=== PATIENT | female | born 1990 | race Caucasian/White ===

== ENCOUNTER 2016-07-21 20:11 | Observation (INO) | payer BC ==
[~2016-07-21] VITALS: Ht 160 cm; Wt 74.9 kg
[~2016-07-21 20:11] MED LIST: BACTRIM,SEPT1 TABLET PO; KEFLEX500 MG PO; MOTRIN800 MG PO; NOHOMEMEDS; PERCOCET 5/31 TABLET PO; PHENERGAN25 MG PR; PROMETHAZINE HC25 M1 PO; TESSALON PERLE100 MG PO; ZANTAC300 MG PO; ZOFRAN ODT4 MG PO; ZOFRAN4 MG PO
[2016-07-21 21:18] LABS: HEMATOCRIT 39.4 % (36.0-46.0); MCH 29.6 PG (29.0-34.0); MEAN PLAT.VOLUME 10.7 uM^3 (9.5-12.4); PLATELET COUNT 278 K/uL (156-360); RBC DIS.WIDTH-CV 12.4 % (11.8-14.6); RBC DIS.WIDTH-SD 38.5 % (39-53); RED BLOOD COUNT 4.53 M/uL (3.80-5.20); WHITE BLOOD COUNT 6.7 K/uL (4.1-10.2)
[2016-07-21 21:29] LABS: CHLORIDE 105 mEq/L (99-109); POTASSIUM 3.8 mEq/L (3.7-5.4); SODIUM 140 mEq/L (136-147)
[2016-07-21 21:31] LABS: GLUCOSE 97 mg/dL (70-99)
[2016-07-21 21:32] LABS: ANION GAP 7 MEQ/L (2-14)
[2016-07-21 21:33] LABS: TOTAL BILIRUBIN 2.6 mg/dL (0.0-1.0)
[2016-07-21 21:34] LABS: ALKALINE PHOSPHATASE 91 IU/L (3-129)
[2016-07-21 21:35] LABS: GFR ESTIMATE (CALCULATED) > 59 mL/min/
[2016-07-21 21:36] LABS: UREA NITROGEN (BUN) 9 mg/dL (9-23)
[2016-07-21 21:38] LABS: LIPASE 30 U/L (1.0-51.0)
[2016-07-21 21:44] LABS: QUANTITATIVE HCG < 4.0 MIU/ML
[2016-07-22] MEDS ORDERED: MELATONIN5 M4 PO (01:03)
[2016-07-22] MEDS ORDERED: UNISOM SLEEP AI25 MG PO (01:04)
[2016-07-22] MEDS ORDERED: BIRTH CONTROL PO (01:04)
[2016-07-22 01:38] LABS: ADD MIUA? YES; BILIRUBIN SMALL; BLOOD NEGATIVE; COLOR AMBER ((YELLOW)); GLUCOSE (STRIP) NEGATIVE; KETONES 5; LEUKOCYTES TRACE; NITRITE NEGATIVE; PROTEIN (STRIP) 30; SPECIFIC GRAVITY 1.017 (1.000-1.030)
[2016-07-22 01:49] LABS: BACTERIA RARE /HPF; EPITHELIAL CELLS 1+ /HPF; MUCUS 3+ /LPF; RED BLOOD CELLS 0-5 /HPF (0-5); UCUL ADDED? NO
[2016-07-22 14:57] VITALS: BP 137/85
[2016-07-22 15:38] VITALS: BP 130/83
== END 2016-07-22 15:45 | disposition home or self-care (01) ==
LOC: EME 20:11 → EDOF 23:56
PROC: 0FT44ZZ Resection of Gallbladder, Percutaneous Endoscopic Approach (ICD-10-PCS; principal; 2016-07-21)
DX: K80.10 Calculus of gallbladder with chronic cholecystitis without obstruction (principal); Z88.5 Allergy status to narcotic agent
CPT/HCPCS: 76705; 80053; 81003; 83690; 84702; 85027; 88304; 99281; 99285; G0378; J0330; J1100; J1170; J1885; J2250; J2405; J2543; J2710; J3010; J7030; J7050; J7120